=== PATIENT | male | born 1995 | race Caucasian/White ===

== ENCOUNTER 2020-09-11 11:13 | Outpatient (REF) | payer OTHER, SELFPAY ==
[2020-09-12 07:41] LABS: Syphilis Screen Nonreactive (Nonreactive)
[2020-09-12 09:19] LABS: HIV AB/AG Nonreactive (Nonreactive); HIV Num 1 0.15 S/CO (0.00-0.99)
[2020-09-12 14:17] LABS: C. trachomatis RNA TMA NOT DETECTED (NOT DETECTED); N. gonorrhoeae RNA TMA NOT DETECTED (NOT DETECTED)
[2020-09-12 18:12] LABS: Herpes Simplex Type 1 IgG <0.90 index; Herpes Simplex Type 2 IgG <0.90 index
== END 2020-09-11 11:14 | disposition home or self-care (01) ==
LOC: HO.HMGCLDS 11:13
PROVIDERS: PCP Nurse Practitioner Family; Visit Provider Nurse Practitioner Family
DX: Z11.3 Encounter for screening for infections with a predominantly sexual mode of transmission (principal); Z11.4 Encounter for screening for human immunodeficiency virus [HIV]
CPT/HCPCS: 86695; 86696; 86780; 87389; 87491; 87591

== ENCOUNTER 2020-11-13 11:26 | Outpatient (REF) | payer OTHER, SELFPAY ==
[2020-11-13 14:44] LABS: Alanine Aminotransferase 11 U/L (0-40); Albumin Level 4.6 g/dL (3.5-5.0); Alkaline Phosphatase 57 U/L (39-117); Anion Gap 12 (12-20); Aspartate Amino Transferase 19 U/L (5-37); Bilirubin Total 0.5 mg/dL (0.0-1.0); Blood Urea Nitrogen 13 mg/dL (9-16); Carbon Dioxide 27 mmol/L (22-29); Chloride 104 mmol/L (96-108); Cholesterol 179 mg/dL; Estimated Glomerular Filt Rate > 60; Glucose Fasting 92 mg/dL (60-99); HDL Cholesterol 33 mg/dL; LDL Cholesterol Calculated 139 mg/dl; Potassium 4.2 mmol/L (3.3-5.1); Sodium 139 mmol/L (135-145); Total Protein 8.3 g/dL (6.5-8.0); Triglycerides 36 mg/dL
[2020-11-13 15:03] LABS: TSH reflex Free T4 0.82 uIU/mL (0.32-4.0)
== END 2020-11-13 11:27 | disposition home or self-care (01) ==
LOC: HO.HMGCLDS 11:26
PROVIDERS: PCP Nurse Practitioner Family; Visit Provider Nurse Practitioner Family
DX: Z00.00 Encounter for general adult medical examination without abnormal findings (principal)
CPT/HCPCS: 36415; 80053; 80061; 84443

== ENCOUNTER 2021-01-23 13:56 | Outpatient (REF) | payer OTHER, SELFPAY ==
[2021-01-23 17:26] LABS: Syphilis Screen Nonreactive (Nonreactive)
[2021-01-24 04:43] LABS: HBc Num1 0.13 S/CO (0.00-0.79); HBsAGNum1 0.22 S/CO (0.00-0.99); Hepatitis B Core Antibody Nonreactive (Nonreactive); Hepatitis B Surface Antigen Negative (Negative); ~Hepatitis B Surface Antibody NONREACTIVE (Nonreactive)
[2021-01-24 04:46] LABS: HIV AB/AG Nonreactive (Nonreactive); HIV Num 1 0.05 S/CO (0.00-0.99); ~HepC Num1 0.13 S/CO (0.00-0.79); ~Hepatitis C Antibody Nonreactive (Nonreactive)
[2021-01-24 05:31] LABS: Herpes Simplex Type 1 IgG 1.07 index; Herpes Simplex Type 2 IgG <0.90 index
[2021-01-24 10:13] LABS: CT PCR NOT DETECTED (Not Detect.); NG PCR NOT DETECTED (Not Detect.)
[2021-01-25 04:26] LABS: Hepatitis A Antibody IgM 0.15 Index (0-0.79); ~Hepatitis A Antibody IgM Nonreactive (Nonreactive)
== END 2021-01-23 13:57 | disposition home or self-care (01) ==
LOC: HO.HMGCLDS 13:56
PROVIDERS: PCP Nurse Practitioner Family; Visit Provider Nurse Practitioner Family
DX: Z11.3 Encounter for screening for infections with a predominantly sexual mode of transmission (principal); Z11.8 Encounter for screening for other infectious and parasitic diseases; Z11.59 Encounter for screening for other viral diseases; Z11.4 Encounter for screening for human immunodeficiency virus [HIV]
CPT/HCPCS: 86695; 86696; 86704; 86706; 86709; 86780; 86803; 87340; 87389; 87491; 87591

== ENCOUNTER 2022-11-17 11:07 | Outpatient (REF) | payer OTHER, SELFPAY ==
[2022-11-17 14:10] LABS: Appearance Urine Cloudy; Color Urine Yellow; Glucose Urine UA Negative (Negative); Leukocyte Esterase Urine Negative (Negative); Nitrite Urine Negative (Negative); PH 6.5 (5.0-9.0); Specific Gravity - Urine 1.025 (1.005-1.025); Urine Blood Negative (Negative); Urine Ketones Trace mg/dL (Negative); Urine Protein Negative (Neg-Trace)
[2022-11-17 14:18] LABS: MANUAL DIFF FLAG NO
[2022-11-17 14:23] LABS: Basophils Percent Auto 0.8 % (0-2); Eosinophils Absolute Auto 0.2 X10*3/uL (0.0-0.4); Eosinophils Percent Auto 5.6 % (0-4); Hematocrit 46.2 % (42.0-52.0); Hemoglobin 15.9 g/dl (14.0-18.0); Lymphocytes Absolute Auto 1.8 X10*3/uL (1.2-4.9); Lymphocytes Percent Auto 44.6 % (20-40); Mean Corpuscular HGB Conc 34.4 g/dl (31.0-36.0); Mean Corpuscular Volume 87.2 fL (80.0-98.0); Mean Platelet Volume 10.1 fL (9.4-12.4); Monocytes Absolute Auto 0.4 X10*3/uL (0.1-1.2); Monocytes Percent Auto 9.9 % (2-11); Neutrophils Absolute Auto 1.5 x10*3/uL (2.0-8.3); Neutrophils Percent Auto 39.1 % (45-73); Platelet Count 163 X10*3/uL (160-400); Red Cell Distribution Width 11.9 % (11.0-16.0); White Blood Count 3.9 X10*3/uL (4.8-10.8)
[2022-11-17 14:56] LABS: Alanine Aminotransferase 10 U/L (0-40); Albumin Level 4.4 g/dL (3.5-5.0); Alkaline Phosphatase 62 U/L (39-117); Anion Gap 11 (12-20); Aspartate Amino Transferase 14 U/L (5-37); Bilirubin Total 0.4 mg/dL (0.0-1.0); Blood Urea Nitrogen 14 mg/dL (9-16); Calcium 9.2 mg/dL (8.4-10.2); Carbon Dioxide 25 mmol/L (22-29); Chloride 108 mmol/L (96-108); Cholesterol 180 mg/dL; Estimated Glomerular Filt Rate > 60; Glucose Fasting 99 mg/dL (60-99); HDL Cholesterol 34 mg/dL; LDL Cholesterol Calculated 137 mg/dl; Potassium 4.2 mmol/L (3.3-5.1); Sodium 140 mmol/L (135-145); TSH reflex Free T4 0.47 uIU/mL (0.32-4.0); Total Protein 8.1 g/dL (6.5-8.0); Triglycerides 46 mg/dL
[2022-11-17 15:25] LABS: Syphilis Screen Nonreactive (Nonreactive)
[2022-11-17 15:40] LABS: CT PCR NOT DETECTED (Not Detect.); NG PCR NOT DETECTED (Not Detect.)
[2022-11-18 11:18] LABS: Herpes Simplex Type 1 IgG <0.90 index; Herpes Simplex Type 2 IgG <0.90 index
[2022-11-18 14:12] LABS: HIV AB/AG Nonreactive (Nonreactive); HIV Num 1 0.09 S/CO (0.00-0.99)
== END 2022-11-17 11:08 | disposition home or self-care (01) ==
LOC: HO.HMGCLDS 11:07
PROVIDERS: PCP Nurse Practitioner Family; Visit Provider Nurse Practitioner Family
DX: Z00.00 Encounter for general adult medical examination without abnormal findings (principal); Z20.2 Contact with and (suspected) exposure to infections with a predominantly sexual mode of transmission
CPT/HCPCS: 0353U; 80053; 80061; 81003; 84443; 85025; 86695; 86696; 86780; 87389

== ENCOUNTER 2023-02-26 09:27 | Outpatient (REF) | payer OTHER, SELFPAY ==
[2023-02-26 15:37] LABS: CT PCR NOT DETECTED (Not Detect.); NG PCR NOT DETECTED (Not Detect.)
== END 2023-02-26 09:28 | disposition home or self-care (01) ==
LOC: HO.LAB 09:27
PROVIDERS: Visit Provider Physician Assistant
DX: Z20.2 Contact with and (suspected) exposure to infections with a predominantly sexual mode of transmission (principal)
CPT/HCPCS: 0353U

== ENCOUNTER 2023-08-22 11:46 | Outpatient (AMB) | payer OTHER, SELFPAY ==
[2023-08-22 13:14] VITALS: BP 110/70; PULSE 86; TEMP 36.2; O2SAT 94; BMI 23.5
--- NOTE | 2023-08-22 13:14 | MHC.OFFWIV ---
Intake Vital Signs 08/22/23 13:14 Height 6 ft 1 in Weight 178 lb BMI 23.5 BP 110/70 Blood Pressure Location Lt brachial Position Sitting Pulse 86 Pulse Source Pulse Oximeter Temp 97.1 F Temp Source Oral Pulse Oximetry (%) 94 Oxygen Delivery Method Room Air Intake Visit Reasons: EP, sinus congestion, fatigue (masked) Intake Note: Pt is here today c/o sinus congestion, coughing and fatigue x2wks Patient Tobacco Use Status: Never used Tobacco Allergies amoxicillin [Augmentin] Adverse Reaction (Unknown, Verified 08/22/23 13:20) vomiting clavulanic acid [Augmentin] Adverse Reaction (Unknown, Verified 08/22/23 13:20) vomiting Do you need a note to return to daycare/school/sports/work: No HPI EP, sinus congestion, fatigue (masked) HPI Details Patient is a 28 year old asthmatic male who comes the walk-in clinic complaining of 2 weeks of increased cough, nasal congestion, lightheadedness and increased use of his albuterol for asthma. He states that he thought he was improving until he he started to develop fever 2 days ago. This resolved today, but he is still having it the reactive cough. He denies nausea vomiting or diarrhea, weakness, myalgias or malaise, dizziness or headache, shortness of breath or chest pain, sore throat, ear pain, or other significant associated symptoms. [facility] Medical History ADHD Family History Father HTN (hypertension) Mother High cholesterol Sister IBS (irritable bowel syndrome) Social History Housing: Condominium Alcohol intake: never Patient Tobacco Use Status: Never used Tobacco e-Cigarette/Vaping Use: Never Used Second Hand Smoke Exposure: No service: No Current occupational status: employed Current occupation: [employer] Current occupational exposures/hazards: No Cognitive needs: No Hearing needs: No Vision needs: No Review of Systems Const All systems reviewed & are unremarkable except as noted in HPI and below Physical Exam Vital Signs: Last Vital Signs Temp 97.1 F 08/22/23 13:14 Pulse 86 08/22/23 13:14 BP 110/70 08/22/23 13:14 Pulse Ox 94 08/22/23 13:14 Oxygen Delivery Method Room Air 08/22/23 13:14 BMI result Body Mass Index 23.5 Const General: cooperative, healthy appearing, comfortable, no acute distress, alert, awake, Physically active and well groomed; No anxious, diaphoretic, intoxicated appearing, poor hygiene or tired appearing Nutritional Appearance: average body habitus Orientation/consciousness: oriented to person Limitations: no limitations HEENT Head: Yes normal to inspection, Yes normocephalic and Yes atraumatic Ears: hearing grossly normal bilaterally, external ears normal, TM's normal bilaterally and EAC's normal General nose exam: Normal external nose present, Normal nares present, Normal nasal mucous membranes and turbinates present, Normal septum present, No nasal discharge present and Abnormal mucous membranes and turbinates present Face and sinus: Yes normal facial exam, Yes sinuses nontender and Yes face symmetric Mouth: Normal oral and palatal mucosa present, lip normal and tongue normal Throat: Yes uvula midline, No peritonsillar mass, Yes postnasal drainage, No uvular edema and No cobblestoning Eyes General: appearance normal, both eyes and all related structures Neck Neck: Yes normal visual inspection, Yes trachea midline, Yes supple and No anterior neck swelling Chest Chest palpation & inspection: normal palpation of entire chest wall Resp Effort & Inspection: normal respiratory effort, able to speak in complete sentences, no audible wheezes, no cough, no grunting, not labored, no nasal flaring, no retractions and symmetric chest movement Auscultation: clear to auscultation bilaterally, no crackles, no rales, no rhonchi, no wheezes, lung sounds not diminished and No rub present Cardio Palpation: normal PMI Rate: regular rate Rhythm: regular rhythm Heart sounds: S1 normal heart sound present and S2 normal heart sound present Skin Other: Good color, warm and dry Neuro General: oriented to person Psych Appearance: grossly normal Mental Status: mental status grossly normal Speech and movement: Normal speech and movement present Affect: normal affect Attitude: cooperative Thought process: Normal thought process present Insight: Good insight present (Psych) Judgement: Good judgement present (Psych) Assessment & Plan Assessment & Plan (1) Upper respiratory infection: Code(s): J06.9 - Acute upper respiratory infection, unspecified Qualifiers: URI type: unspecified viral URI Qualified Code(s): J06.9 - Acute upper respiratory infection, unspecified Plan Patient is a 28-year-old male with upper respiratory infection that is aggravating his asthma, however he is not wheezing today and has no shortness of breath. He has developed a mildly reactive cough, that he has been using his albuterol to treat than usual. His vitals are stable, and is appropriate for outpatient treatment. I refilled his albuterol today, and I wrote him for course of prednisone as well as azithromycin antibiotics in the setting of his asthma. Likely this is an underlying viral infection, however his 2 weeks in and so he respiratory panel not done today. He knows to follow up if symptoms persist or worsen or go to the emergency department with worrisome symptoms. Medications: New prednisone then take 2 and half tabs daily for 3 days, then take 2 tabs daily for 3 days, then take 1 and half tabs daily for 3 days, and then take 1 tab daily for 3 days 60 mg (3 x 20 mg) PO DAILY 30 tabs 0RF 3 days azithromycin take 500 mg today (day 1), then 250 mg for 4 days (days 2-5) PO 6 tabs 0RF Refilled albuterol sulfate 90 mcg/actuation (ProAir HFA) 1 inh inhalation QID PRN 8.5 grams 0RF shortness of breath or wheezing Coding Level of Care Code Est Pt Level 4 (27805) Diagnoses Viral upper respiratory tract infection J06.9 URI type: unspecified viral URI
== END 2023-08-22 14:01 | disposition home or self-care (01) ==
PROVIDERS: PCP Nurse Practitioner Family; Visit Provider Physician Assistant Medical
DX: J06.9 Acute upper respiratory infection, unspecified (principal)
CPT/HCPCS: 99051; 99214

== ENCOUNTER 2024-03-28 15:33 | Outpatient (AMB) | payer OTHER, SELFPAY ==
[2024-03-28 15:36] VITALS: BP 122/84; PULSE 57; O2SAT 97; BMI 23.9
--- NOTE | 2024-03-28 15:36 | A.OFFPC_ITS ---
Vital Signs 03/28/24 15:36 Height 6 ft 1 in Weight 181 lb 6 oz BMI 23.9 BP 122/84 Blood Pressure Location Lt brachial Position Sitting Pulse 57 Pulse Source Pulse Oximeter Pulse Oximetry (%) 97 Oxygen Delivery Method Room Air Intake Visit Reasons: Followup asthma Intake Note: Pt is here today for a follow up on asthma Allergies amoxicillin [Augmentin] Adverse Reaction (Unknown, Verified 03/28/24 15:36) vomiting clavulanic acid [Augmentin] Adverse Reaction (Unknown, Verified 03/28/24 15:36) vomiting Tobacco use date assessed: 03/28/24 Dental Screening Dental Screen Date: 03/28/24 Did you have a dental visit in the last 12 months?: Yes Did you have a dental problem in the last 6 months where you did not have access to dental care?: No Was dental information given to patient?: Patient has dentist HPI Followup asthma HPI Details Pt has a hx of asthma. He is using his albuterol inhaler approximately twice a week (works around mostly plants). Discussed adding a medication such as singulair or maintenance inhaler. Pt would like to wait on this and do his own research. He will let me know via portal whether or not he would like to start a med. Denies chest pain, shortness of breath, and dizziness. [facility] Medical History ADHD Family History Father HTN (hypertension) Mother High cholesterol Sister IBS (irritable bowel syndrome) Social History Housing: Condominium Alcohol intake: never Patient Tobacco Use Status: Current someday Tobacco user e-Cigarette/Vaping Use: Never Used Second Hand Smoke Exposure: No service: No Current occupational status: employed Current occupation: [employer] Current occupational exposures/hazards: No Cognitive needs: No Hearing needs: No Vision needs: No Questionnaire PHQ-9 Over the last 2 weeks, how often have you been bothered by any of the following problems? 1. Little interest or pleasure in doing things: not at all 2. Feeling down, depressed, or hopeless: not at all 3. Trouble falling or staying asleep, or sleeping too much: not at all 4. Feeling tired or having little energy: not at all 5. Poor appetite or overeating: not at all 6. Feeling bad about yourself - or that you are a failure or have let yourself or your family down: not at all 7. Trouble concentrating on things, such as reading the newspaper or watching television: not at all 8. Moving or speaking so slowly that other people could have noticed. Or the opposite - being so fidgety or restless that you have been moving around a lot more than usual: not at all 9. Thoughts that you would be better off or of hurting yourself in some way: not at all Total score: 0 Depression Screening Interpretation: Negative Depression Screening Done: Yes 69712 - PHQ-9 Billing: Yes Source: Developed by Drs. Akira Teague, Karen Silvestre, Jim Chen and colleagues, with an educational lisa from [employer]. Thrive Questionnaire Date Thrive assessed: 03/28/24 I am a: Patient What is your living situation today?: I have a steady place to live Within the past 12 months, did the food you bought not last and you didn't have the money to get more?: Never true Within the past 12 months, did you worry whether your food would run out before you got money to buy more?: Never true Do you have trouble paying for medicines?: No Do you have trouble getting transportation to medical appointments?: No Do you have trouble paying your heating and electricity bill?: No Do you have trouble taking care of your child, family member or friend?: No Do you have trouble with day-to-day activities such as bathing, preparing meals, shopping, managing finances, etc.?: No Are you currently unemployed and looking for a job?: No Are you interested in more education?: No Please select the resources that you would like help with: None Currently or been in a relationship where the following occur: No concerns reported THRIVE Score: 0 AUDIT C Alcohol Use Questionnaire (AUDIT-C) 1. How often do you have a drink containing alcohol?: Monthly or less 2. How many drinks containing alcohol do you have on a typical day when you are drinking?: 1 or 2 3. How often do you have six or more drinks on one occasion?: Never Total Score: 1 Score Reviewed/Action Taken: Yes KAYLA-7 AMB Questionnaire KAYLA-7 Date KAYLA - 7 assessed: 03/28/24 Feeling nervous, anxious, or on edge: 0 = Not at all Not being able to stop or control worryin = Not at all Worrying too much about different things: 0 = Not at all Trouble relaxin = Not at all Being so restless that it is hard to sit still: 0 = Not at all Becoming easily annoyed or irritable: 0 = Not at all Feeling afraid as if something awful might happen: 0 = Not at all Total KAYLA-7 score (0-4 normal; 5-9 mild; 10-14 moderate; 15-21 severe): 0 Source: Developed by Drs. Akira Teague, Karen Silvestre, Jim Chen and colleagues, with an educational lisa from [employer]. KAYLA-7 Assessment Billing KAYLA-7 Assessment Tool: KAYLA-7 Assessment 44573 Review of Systems Const Reports as per HPI Physical exam (Primary Care) Vital Signs: Last Vital Signs Pulse 57 03/28/24 15:36 BP 122/84 03/28/24 15:36 Pulse Ox 97 03/28/24 15:36 Oxygen Delivery Method Room Air 03/28/24 15:36 BMI result Body Mass Index 23.9 Tobacco/Smoking Status: Tobacco use Status Tobacco use date assessed 03/28/24 03/28/24 15:40 Patient Tobacco Use Status Current someday Tobacco 03/28/24 15:43 e-Cigarette/Vaping Use Never Used 03/28/24 15:37 PHQ-9: PHQ-9 Score PHQ-9: Total score 0 03/28/24 15:59 Depression Screening Interpretation: Negative Thrive Assessment: Date of Thrive Assessment Date Thrive assessed 03/28/24 03/28/24 15:40 Currently or been in a relationship where the following occur: No concerns reported Const General: cooperative Orientation/consciousness: patient oriented x3 Resp Other: lungs fairly clear Effort & Inspection: normal respiratory effort Cardio Rate: regular rate Rhythm: regular rhythm Heart sounds: S1 normal heart sound present and S2 normal heart sound present Neuro General: patient oriented x3 Psych Appearance: grossly normal Mental Status: mental status grossly normal Speech and movement: Normal speech and movement present Affect: normal affect Attitude: cooperative Thought process: Normal thought process present Thought content: Normal thought content present Insight: Good insight present (Psych) Judgement: Good judgement present (Psych) Assessment and Plan Assessment & Plan (1) Asthma: Code(s): J45.909 - Unspecified asthma, uncomplicated Plan: Labs ordered, pt would like to wait on any new meds Plan The patient agreed to the use of a medical transcription editor for this encounter. Scribed for YAKOV Mcghee-MARCELLUS by Jennifer Marcelino medical transcription editor, on 03/28/2024 at 15:55 EST. Orders: Orders TSH reflex Free T4 Today J45.909 - Unspecified asthma, uncomplicated UA CC w/rflx Micro + Cult Today J45.909 - Unspecified asthma, uncomplicated Immunoglobulin E Today J45.909 - Unspecified asthma, uncomplicated Complete Blood Count Auto Diff Today J45.909 - Unspecified asthma, uncomplicated Comprehensive Minerva. Panel Fast Today J45.909 - Unspecified asthma, uncomplicated Lipid Panel Today J45.909 - Unspecified asthma, uncomplicated Resp Allergy Profile Region I Today J45.909 - Unspecified asthma, uncomplicated Coding Level of Care Code Est Pt Level 3 (09993) Diagnoses Asthma J45.909 Additional Codes KAYLA-7 Assessment Billing - KAYLA-7 Assessment Tool: KAYLA-7 Assessment [id number] ([id number])
== END 2024-03-28 17:23 | disposition home or self-care (01) ==
PROVIDERS: PCP Nurse Practitioner Family; Visit Provider Nurse Practitioner Family
DX: J45.909 Unspecified asthma, uncomplicated (principal)
CPT/HCPCS: 99213

== ENCOUNTER 2024-08-08 12:38 | Outpatient (REF) | payer OTHER, SELFPAY ==
[2024-08-08 17:04] LABS: Influenza A PCR NEGATIVE (Negative); Influenza B PCR NEGATIVE (Negative); Resp Syncy Virus RNA Qual PCR NEGATIVE (Negative); SARS COV2 PCR INHOUSE NEGATIVE (Negative)
== END 2024-08-08 12:39 | disposition home or self-care (01) ==
LOC: HO.LNP 12:38
PROVIDERS: PCP Nurse Practitioner Family; Visit Provider Registered Nurse
DX: J06.9 Acute upper respiratory infection, unspecified (principal)
CPT/HCPCS: 0241U

== ENCOUNTER 2024-08-08 12:38 | Outpatient (AMB) | payer OTHER, SELFPAY ==
--- NOTE | 2024-08-08 14:01 | AM.OFFWIN_ITS ---
Intake Vital Signs 08/08/24 14:03 Height 6 ft 1 in Weight 178 lb 6 oz BMI 23.5 BP 142/88 H Blood Pressure Location Lt brachial Position Sitting Pulse 111 H Pulse Source Pulse Oximeter Temp 97.8 F Temp Source Temporal Artery Scan Pulse Oximetry (%) 97 Oxygen Delivery Method Room Air Intake Visit Reasons: EP-fever, nose & chest congestion, sob [phone] Intake Note: Pt presents to the office today for c/o fever x2 days and cough, nose and chest congestion x3 days. Patient Tobacco Use Status: Never used Tobacco Allergies amoxicillin [Augmentin] Adverse Reaction (Unknown, Verified 08/08/24 14:01) vomiting clavulanic acid [Augmentin] Adverse Reaction (Unknown, Verified 08/08/24 14:01) vomiting HPI EP-fever, nose & chest congestion, sob [phone] HPI Details This note is constructed using voice recognition software. While every effort has been made to ensure accuracy, caustic mixer errors may have been included. The patient is a 29 year old male who presents to the clinic today with cough, nasal congestion, low-grade fever since Thursday. He had sick exposure through his partner who had recently been treated for pneumonia. He denies dyspnea at rest, but does have some shortness of breath when he is coughing. He has a history of asthma and has been using his albuterol inhaler slightly more than normal. [facility] Medical History ADHD Family History Father HTN (hypertension) Mother High cholesterol Sister IBS (irritable bowel syndrome) Social History Housing: Condominium Alcohol intake: never Patient Tobacco Use Status: Never used Tobacco e-Cigarette/Vaping Use: Never Used Second Hand Smoke Exposure: No service: No Current occupational status: employed Current occupation: [employer] Current occupational exposures/hazards: No Cognitive needs: No Hearing needs: No Vision needs: No Review of Systems Const All systems reviewed & are unremarkable except as noted in HPI and below Physical Exam Vital Signs: Last Vital Signs Temp 97.8 F 08/08/24 14:03 Pulse 111 H 08/08/24 14:03 BP 142/88 H 08/08/24 14:03 Pulse Ox 97 11/18/24 14:03 Oxygen Delivery Method Room Air 08/08/24 14:03 BMI result Body Mass Index 23.5 Const General: cooperative, healthy appearing, comfortable and no acute distress Orientation/consciousness: patient oriented x3 Limitations: no limitations HEENT Head: Yes normal to inspection Ears: hearing grossly normal bilaterally, external ears normal and TM's normal bilaterally General nose exam: Normal external nose present, Normal nares present and No nasal discharge present Face and sinus: Yes normal facial exam and Yes sinuses nontender Mouth: Normal oral and palatal mucosa present and moist mucous membranes Throat: Yes tonsils normal, Yes uvula midline and Yes posterior oropharynx a bnormal (Erythema) Eyes General: appearance normal, both eyes and all related structures Neck Neck: Yes normal visual inspection Resp Effort & Inspection: normal respiratory effort, able to speak in complete sentences, Actively coughing, no respiratory distress, not tachypneic, no tripod positioning and no use of accessory muscles Auscultation: clear to auscultation bilaterally (Wheeze that clears with cough) Cardio Jugular venous distension: no JVD Rate: regular rate Rhythm: regular rhythm Heart sounds: S1 normal heart sound present, S2 normal heart sound present, no click, no gallops, no murmurs and no rubs Skin General skin exam: no rashes or lesions noted, elasticity normal and turgor normal Neuro General: patient oriented x3 Extrem General: Yes normal to inspection and Yes no clubbing, cyanosis or edema Assessment & Plan Assessment & Plan (1) Upper respiratory infection: Code(s): J06.9 - Acute upper respiratory infection, unspecified Qualifiers: URI type: unspecified URI Qualified Code(s): J06.9 - Acute upper respiratory infection, unspecified Plan: Viral swab obtained to rule out Covid based on symptoms. Advised mask wearing while symptomatic and quarantine per current CDC guidelines. Reviewed at home support methods including hydration, humidification, vix vapor rub, sinus rinse. Advised follow up with worsening symptoms such as dyspnea at rest, which would require emergent evaluation. (2) Asthma exacerbation: Code(s): J45.901 - Unspecified asthma with (acute) exacerbation Qualifiers: Asthma severity: moderate Asthma persistence: persistent Qualified Code(s): J45.41 - Moderate persistent asthma with (acute) exacerbation Plan: Advised ongoing use of albuterol inhaler. Prescription provided for prednisone burst for symptomatic management. Advised follow up with worsening or failure to resolve, particularly should he develop any dyspnea at rest. Plan See above for full details and plan. Orders: Orders SARS-CoV2/FLU/RSV Today J06.9 - Acute upper respiratory infection, unspecified Medications: New prednisone 40 mg (2 x 20 mg) PO DAILY 5 days 10 tabs 0RF Coding Level of Care Code Est Pt Level 3 (81191) Diagnoses Upper respiratory tract infection, unspecified type J06.9 URI type: unspecified URI Moderate persistent asthma with exacerbation J45.41 Asthma severity: moderate Asthma persistence: persistent
[2024-08-08 14:03] VITALS: BP 142/88; PULSE 111; TEMP 36.6; O2SAT 97; BMI 23.5
== END 2024-08-08 14:46 | disposition home or self-care (01) ==
PROVIDERS: PCP Nurse Practitioner Family; Visit Provider Registered Nurse
DX: J06.9 Acute upper respiratory infection, unspecified (principal); J45.41 Moderate persistent asthma with (acute) exacerbation

== ENCOUNTER 2024-10-12 14:19 | Outpatient (REF) | payer OTHER, SELFPAY ==
[2024-10-12 16:10] LABS: Appearance Urine Clear; Color Urine Yellow; Glucose Urine UA Negative (Negative); Leukocyte Esterase Urine Negative (Negative); Nitrite Urine Negative (Negative); Urine Blood Negative (Negative); Urine Ketones Negative (Negative); Urine Protein Negative (Neg-Trace)
[2024-10-12 16:18] LABS: MANUAL DIFF FLAG NO
[2024-10-12 16:34] LABS: Hematocrit 45.7 % (42.0-52.0); Hemoglobin 15.7 g/dl (14.0-18.0); Mean Corpuscular HGB Conc 34.4 g/dl (31.0-36.0); Mean Corpuscular Hemoglobin 30.7 pg (27.0-33.0); Mean Corpuscular Volume 89.4 fL (80.0-98.0); Mean Platelet Volume 9.9 fL (9.4-12.4); Neutrophils Percent Auto 37.6 % (45-73); Platelet Count 192 X10*3/uL (160-400); Red Blood Count 5.11 X10*6/uL (4.60-5.80); Red Cell Distribution Width 12.1 % (11.0-16.0); White Blood Count 3.4 X10*3/uL (4.8-10.8)
[2024-10-12 16:35] LABS: Basophils Percent Auto 0.3 % (0-2); Eosinophils Absolute Auto 0.1 X10*3/uL (0.0-0.4); Eosinophils Percent Auto 3.9 % (0-4); Lymphocytes Absolute Auto 1.6 X10*3/uL (1.2-4.9); Lymphocytes Percent Auto 48.1 % (20-40); Monocytes Absolute Auto 0.3 X10*3/uL (0.1-1.2); Monocytes Percent Auto 10.1 % (2-11); Neutrophils Absolute Auto 1.3 x10*3/uL (2.0-8.3)
[2024-10-12 17:04] LABS: Alanine Aminotransferase 40 U/L (0-40); Albumin Level 4.6 g/dL (3.5-5.0); Alkaline Phosphatase 62 U/L (39-117); Anion Gap 7 (12-20); Aspartate Amino Transferase 38 U/L (5-37); Bilirubin Total 0.4 mg/dL (0.0-1.0); Blood Urea Nitrogen 10 mg/dL (9-16); Calcium 9.9 mg/dL (8.4-10.2); Carbon Dioxide 27 mmol/L (22-29); Chloride 107 mmol/L (96-108); Cholesterol 216 mg/dL (<200); Estimated Glomerular Filt Rate > 60; Glucose Fasting 86 mg/dL (60-99); HDL Cholesterol 40 mg/dL (>40); LDL Cholesterol Calculated 162 mg/dL (<100); Potassium 4.2 mmol/L (3.3-5.1); Sodium 137 mmol/L (135-145); Total Protein 8.6 g/dL (6.5-8.0); Triglycerides 74 mg/dL (<150)
[2024-10-12 17:19] LABS: TSH reflex Free T4 1.87 uIU/mL (0.32-4.0)
[2024-10-24 13:09] LABS: Immunoglobulin A 281
[2024-10-24 13:10] LABS: Transglutaminase IgA <1.0
== END 2024-10-12 14:20 | disposition home or self-care (01) ==
LOC: HO.HMGCLDS 14:19
PROVIDERS: PCP Nurse Practitioner Family; Visit Provider Nurse Practitioner Family
DX: J45.909 Unspecified asthma, uncomplicated (principal); D72.819 Decreased white blood cell count, unspecified; E78.5 Hyperlipidemia, unspecified
CPT/HCPCS: 36415; 80053; 80061; 81003; 82784; 82785; 84443; 85025; 86003; 86258; 86364

== ENCOUNTER 2024-10-17 13:01 | Outpatient (AMB) | payer OTHER, SELFPAY ==
[2024-10-17 13:02] VITALS: BP 130/82; PULSE 75; TEMP 36.7; O2SAT 98; BMI 23.8
--- NOTE | 2024-10-17 13:02 | A.OFFPC_ITS ---
Vital Signs 10/17/24 13:02 Height 6 ft 1 in Weight 180 lb 8 oz BMI 23.8 BP 130/82 Blood Pressure Location Lt brachial Position Sitting Pulse 75 Pulse Source Pulse Oximeter Temp 98.1 F Temp Source Oral Pulse Oximetry (%) 98 Oxygen Delivery Method Room Air Intake Visit Reasons: PE Intake Note: Pt is here today for his annual physical. Allergies amoxicillin [Augmentin] Adverse Reaction (Unknown, Verified 10/17/24 13:31) vomiting clavulanic acid [Augmentin] Adverse Reaction (Unknown, Verified 10/17/24 13:31) vomiting Medication List - Last Reconciled 10/17/24 by Evangelist Loja, [employer]- albuterol sulfate 90 mcg/actuation 1 inh inhalation QID PRN Tobacco use date assessed: 10/17/24 Dental Screening Dental Screen Date: 10/17/24 Did you have a dental visit in the last 12 months?: Yes Did you have a dental problem in the last 6 months where you did not have access to dental care?: No Was dental information given to patient?: Patient has dentist HPI PE HPI Details History of Present Illness Here for a PE. The patient is a 29-year-old male also presenting with hyperlipidemia. Recent laboratory evaluations indicated elevated cholesterol levels and increased low-density lipoprotein (LDL). He does not report any symptoms associated with hyperlipidemia, such as chest pain or shortness of breath. There were no lifestyle or dietary changes noted in the conversation that may have contributed to this finding. 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 There is no mention of associated symptoms related to leukopenia from the conversation. Health Maintenance - Addressing hyperlipidemia with dietary management and follow-up laboratory testing - Referral to hematology for further patricia luation of leukopenia Social History Review of Systems - Cardiovascular: Denies chest pain, candice rtness of breath. - General: Denies fevers, chills. - Gastrointestinal: Denies constipation, diarrhea. - Genitourinary: Denies urinary issues. - Psychiatric: Denies suicidal ideation, homicidal ideation. Physical Exam General: Cooperative, healthy appearing, comfortable, no acute distress and well developed Orientation: Patient oriented x3 Limitations: No limitations Head: Normal to inspection Ears: Hearing grossly normal bilaterally Nose: Normal external nose present Face and sinus: Normal facial exam Eyes: Appearance normal, both eyes and all related structures Neck: Normal visual inspection and Yes full ROM Respiratory: Normal respiratory effort and able to speak in complete sentences. Clear to auscultation bilaterally Cardiovascular: Regular rate and rhythm. Normal S1 and S2 GI: Normal to inspection. Soft to palpation and nontender Skin: No rashes or lesions noted Neuro: Patient oriented x3 Extremities: Normal to inspection Results - Labs: Elevated cholesterol levels, inc reased LDL, leukopenia noted on laboratory results. Plan - Monitor hyperlipidemia through dietary modifications and repeat laboratory testing for lipid profile. - Referral to hematology for further patricia luation of leukopenia due to its rec urrence. Patient was informed and verbally consented to the use of an ambient scribe for clinic note documentation during this visit. Discussion Notes During the visit, I discussed the implications of the laboratory findings with the patient. We reviewed the elevated cholesterol levels and the increase in LDL, emphasizing the importance of dietary changes to manage these levels. I advised a follow-up lipid profile and highlighted the need for ongoing surveillance. Regarding the leukopenia, due to its persistence, I recommended a referral to hematology for additional evaluation to determine underlying causes and appropriate management strategies. The patient understood and agreed with the plan of care. Patient Instructions - Follow a heart-healthy diet to help re duce cholesterol levels. - Return for follow-up laboratory testin g as recommended. - Attend hematology referral appointment for further evaluation of low white blood cell count. [facility] Medical History ADHD Family History Father HTN (hypertension) Mother High cholesterol Sister IBS (irritable bowel syndrome) Social History Housing: Condominium Alcohol intake: never Patient Tobacco Use Status: Never used Tobacco e-Cigarette/Vaping Use: Never Used Second Hand Smoke Exposure: No service: No Current occupational status: employed Current occupation: [employer] Current occupational exposures/hazards: No Cognitive needs: No Hearing needs: No Vision needs: No Questionnaire PHQ-9 Over the last 2 weeks, how often have you been bothered by any of the following problems? 1. Little interest or pleasure in doing things: not at all 2. Feeling down, depressed, or hopeless: not at all 3. Trouble falling or staying asleep, or sleeping too much: not at all 4. Feeling tired or having little energy: not at all 5. Poor appetite or overeating: not at all 6. Feeling bad about yourself - or that you are a failure or have let yourself or your family down: not at all 7. Trouble concentrating on things, such as reading the newspaper or watching television: not at all 8. Moving or speaking so slowly that other people could have noticed. Or the opposite - being so fidgety or restless that you have been moving around a lot more than usual: not at all 9. Thoughts that you would be better off or of hurting yourself in some way: not at all Total score: 0 Depression Screening Interpretation: Negative Depression Screening Done: Yes 21004 - PHQ-9 Billing: Yes Source: Developed by Drs. Akira Teague, Karen Silvestre, Jim Chen and colleagues, with an educational lisa from [employer]. Thrive Questionnaire Date Thrive assessed: 10/17/24 I am a: Patient What is your living situation today?: I have a steady place to live Within the past 12 months, did the food you bought not last and you didn't have the money to get more?: I choose not to answer this question Within the past 12 months, did you worry whether your food would run out before you got money to buy more?: I choose not to answer this question Do you have trouble paying for medicines?: I choose not to answer this question Do you have trouble getting transportation to medical appointments?: I choose n ot to answer this question Do you have trouble paying your heating and electricity bill?: I choose not to answer this question Do you have trouble taking care of your child, family member or friend?: I choose not to answer this question Do you have trouble with day-to-day activities such as bathing, preparing meals, shopping, managing finances, etc.?: I choose not to answer this question Are you currently unemployed and looking for a job?: I choose not to answer this question Are you interested in more education?: I choose not to answer this question Please select the resources that you would like help with: None Currently or been in a relationship where the following occur: I choose not to answer THRIVE Score: 0 AUDIT C Alcohol Use Questionnaire (AUDIT-C) 1. How often do you have a drink containing alcohol?: 2-4 times a month 2. How many drinks containing alcohol do you have on a typical day when you are drinking?: 1 or 2 3. How often do you have six or more drinks on one occasion?: Never Total Score: 2 Score Reviewed/Action Taken: Yes KAYLA-7 AMB Questionnaire KAYLA-7 Date KAYLA - 7 assessed: 10/17/24 Feeling nervous, anxious, or on edge: 0 = Not at all Not being able to stop or control worryin = Not at all Worrying too much about different things: 0 = Not at all Trouble relaxin = Not at all Being so restless that it is hard to sit still: 0 = Not at all Becoming easily annoyed or irritable: 0 = Not at all Feeling afraid as if something awful might happen: 0 = Not at all Total KAYLA-7 score (0-4 normal; 5-9 mild; 10-14 moderate; 15-21 severe): 0 Source: Developed by Drs. Akira Teague, Karen Silvestre, Jim Chen and colleagues, with an educational lisa from [employer]. KAYLA-7 Assessment Billing KAYLA-7 Assessment Tool: KAYLA-7 Assessment 32565 Physical exam (Primary Care) Vital Signs: Last Vital Signs Temp 98.1 F 10/17/24 13:02 Pulse 75 10/17/24 13:02 BP 130/82 10/17/24 13:02 Pulse Ox 98 10/17/24 13:02 Oxygen Delivery Method Room Air 10/17/24 13:02 BMI result Body Mass Index 23.8 Tobacco/Smoking Status: Tobacco use Status Tobacco use date assessed 10/17/24 10/17/24 13:05 Patient Tobacco Use Status Never used Tobacco 10/17/24 13:05 e-Cigarette/Vaping Use Never Used 10/17/24 13:05 Depression Screening Interpretation: Negative Thrive Assessment: Date of Thrive Assessment Date Thrive assessed 10/17/24 10/17/24 13:05 Currently or been in a relationship where the following occur: I choose not to answer Coding Level of Care Code Est Pt Prev Care 18-39y([id number]) Diagnoses Leukopenia D72.819 Dyslipidemia E78.5 Physical exam Z00.00 Additional Codes KAYLA-7 Assessment Billing - KAYLA-7 Assessment Tool: KAYLA-7 Assessment 03529 ([id number]) PHQ-9 - 98577 - PHQ-9 Billing: Yes ([id number]) Assessment & Plan Assessment & Plan (1) Leukopenia: Code(s): D72.819 - Decreased white blood cell count, unspecified Category: Medical (2) Dyslipidemia: Code(s): E78.5 - Hyperlipidemia, unspecified Category: Medical (3) Physical exam: Code(s): Z00.00 - Encounter for general adult medical examination without abnormal findings Category: Medical Plan . Orders: Orders Complete Blood Count Auto Diff Today E78.5 - Hyperlipidemia, unspecified Lipid Panel Today E78.5 - Hyperlipidemia, unspecified Comprehensive [place]. Panel Fast Today E78.5 - Hyperlipidemia, unspecified Referrals Hematology & Oncology Referral D72.819 - Decreased white blood cell count, unspecified
== END 2024-10-17 13:51 | disposition home or self-care (01) ==
PROVIDERS: PCP Nurse Practitioner Family; Visit Provider Nurse Practitioner Family
DX: D72.819 Decreased white blood cell count, unspecified (principal); E78.5 Hyperlipidemia, unspecified; Z00.00 Encounter for general adult medical examination without abnormal findings

== ENCOUNTER → 2024-10-17 13:01 | Outpatient (BNVA) | payer OTHER, SELFPAY | PROVIDERS: PCP Nurse Practitioner Family; Visit Provider Nurse Practitioner Family | DX: Z00.00 Encounter for general adult medical examination without abnormal findings (principal); D72.819 Decreased white blood cell count, unspecified; E78.5 Hyperlipidemia, unspecified | CPT/HCPCS: 96127 ==

== ENCOUNTER → 2024-10-20 13:57 | Outpatient (BNV) | payer OTHER, SELFPAY | PROVIDERS: PCP Nurse Practitioner Family; Referring Provider Nurse Practitioner Family; Visit Provider Nurse Practitioner Family | DX: D72.819 Decreased white blood cell count, unspecified (principal) | CPT/HCPCS: 99204 ==

== ENCOUNTER 2025-08-23 08:46 | Outpatient (REF) | payer OTHER, SELFPAY ==
[2025-08-23 11:38] LABS: HBS Num1 1.79 mIU/mL (0-7.99); HBc Num1 0.15 S/CO (0.00-0.79); HBsAGNum1 0.46 S/CO (0.00-0.99); HIV Num 1 0.05 S/CO (0.00-0.99); Hepatitis A Antibody IgM 0.23 Index (0-0.79); Hepatitis B Surface Antigen Negative (Negative); ~HepC Num1 0.14 S/CO (0.00-0.79); ~Hepatitis A Antibody IgM Nonreactive (Nonreactive); ~Hepatitis B Surface Antibody NONREACTIVE (Nonreactive); ~Hepatitis C Antibody Nonreactive (Nonreactive)
[2025-08-23 12:17] LABS: CT PCR Urine NOT DETECTED (Not Detect.); NG PCR Urine NOT DETECTED (Not Detect.)
== END 2025-08-23 08:47 | disposition home or self-care (01) ==
LOC: HO.HMGCLDS 08:46
PROVIDERS: PCP Nurse Practitioner Family; Visit Provider Physician Assistant
DX: Z20.2 Contact with and (suspected) exposure to infections with a predominantly sexual mode of transmission (principal); Z11.4 Encounter for screening for human immunodeficiency virus [HIV]
CPT/HCPCS: 36415; 86704; 86706; 86709; 86803; 87340; 87389; 87491; 87591

== ENCOUNTER 2025-08-23 08:46 | Outpatient (AMB) | payer OTHER, SELFPAY ==
[2025-08-23 08:50] VITALS: BP 130/70; PULSE 102; O2SAT 98; BMI 22.3
--- NOTE | 2025-08-23 08:50 | AM.OFFWIN_ITS ---
Intake Vital Signs 08/23/25 08:50 Height 6 ft 2 in Weight 78.925 kg BMI 22.3 BP 130/70 Blood Pressure Location Lt brachial Position Sitting Pulse 102 H Pulse Source Pulse Oximeter Pulse Oximetry (%) 98 Oxygen Delivery Method Room Air Intake Visit Reasons: EP std testing Intake Note: Patient presents for STD check. Unsure of exposure but wants to check for everything. Patient Tobacco Use Status: Never used Tobacco Allergies almond Allergy (Unknown, Verified 08/23/25 08:55) Unknown avocado Allergy (Unknown, Verified 08/23/25 08:55) Unknown banana Allergy (Unknown, Verified 08/23/25 08:55) Unknown birch Allergy (Unknown, Verified 08/23/25 08:55) Unknown blueberry Allergy (Unknown, Verified 08/23/25 08:55) Unknown Winifred nut Allergy (Unknown, Verified 08/23/25 08:55) Unknown carrot Allergy (Unknown, Verified 08/23/25 08:55) Unknown cashew nut Allergy (Unknown, Verified 08/23/25 08:55) Unknown coconut Allergy (Unknown, Verified 08/23/25 08:55) Unknown grape Allergy (Unknown, Verified 08/23/25 08:55) Unknown hazelnut Allergy (Unknown, Verified 08/23/25 08:55) Unknown lettuce Allergy (Unknown, Verified 08/23/25 08:55) Unknown macadamia nut Allergy (Unknown, Verified 08/23/25 08:55) Unknown mustard Allergy (Unknown, Verified 08/23/25 08:55) Unknown oats Allergy (Unknown, Verified 08/23/25 08:55) Unknown orange Allergy (Unknown, Verified 08/23/25 08:55) Unknown peach Allergy (Unknown, Verified 08/23/25 08:55) Unknown peanut Allergy (Unknown, Verified 08/23/25 08:55) Unknown pear Allergy (Unknown, Verified 08/23/25 08:55) Unknown sesame seed Allergy (Unknown, Verified 08/23/25 08:55) Unknown soybean Allergy (Unknown, Verified 08/23/25 08:55) Unknown tomato Allergy (Unknown, Verified 08/23/25 08:55) Unknown walnut Allergy (Unknown, Verified 08/23/25 08:55) Unknown wheat Allergy (Unknown, Verified 08/23/25 08:55) Unknown willow Allergy (Unknown, Verified 08/23/25 08:55) Unknown amoxicillin (Augmentin) Adverse Reaction (Unknown, Verified 08/23/25 08:55) vomiting clavulanic acid (Augmentin) Adverse Reaction (Unknown, Verified 08/23/25 08:55) vomiting beech Allergy (Mild, Uncoded 08/23/25 08:55) Unknown hickory/pecan tree Allergy (Unknown, Uncoded 08/23/25 08:55) Unknown mindy grass Allergy (Unknown, Uncoded 08/23/25 08:55) Unknown maize/corn Allergy (Unknown, Uncoded 08/23/25 08:55) Unknown ann fruit Allergy (Unknown, Uncoded 08/23/25 08:55) Unknown maple Allergy (Unknown, Uncoded 08/23/25 08:55) Unknown meadow fescue Allergy (Unknown, Uncoded 08/23/25 08:55) Unknown orchard grass Allergy (Unknown, Uncoded 08/23/25 08:55) Unknown walnut tree Allergy (Unknown, Uncoded 08/23/25 08:55) Unknown white karri Allergy (Unknown, Uncoded 08/23/25 08:55) Unknown Do you need a note to return to daycare/school/sports/work: No HPI HPI Comments History of Present Illness Details Chief Complaint: ?I want to get tested for STDs, mainly HIV.? History of Present Illness: The patient presents requesting comprehensive STD testing, with primary concern about HIV. He reports a single episode of unprotected sexual intercourse appro ximately two months ago. He performed an at-home oral swab HIV test but is worried the two-month interval may be insufficient for accurate results, results were negative. He denies any known exposure, injection drug use, or needle sharing. He describes having been ill with flu-like symptoms about two weeks ago and notes that he is again experiencing similar symptoms. He rarely becomes ill and finds two consecutive illnesses unusual. He notes that people around him are not getting sick, which she finds odd. Current symptoms include raw throat and cough; he denies rash and is unsure about lymphadenopathy. He is uncertain whether these symptoms are related to a possible STD or represent coincidental viral illnesses. He has not had recent testing for gonorrhea or other STDs other than a single urine test of unknown scope. He was unable to receive a full STD panel at a prior visit due to sample limitations. He requests repeat testing today for HIV, hepatitis C, and a full STD panel. The patient also requests a refill of his inhaler prescription. He has a primary care provider, Dr.?John Fox, and consents to have results forwarded to him. The patient requests evaluation for possible sexually transmitted infections following unprotected intercourse two months ago and seeks refill of his inhaler. Problem #1: STD Screening / HIV Exposure Concern Assessment: Patient is asymptomatic for classic HIV seroconversion rash but reports recent flu-like illnesses causing anxiety about possible HIV or other STDs after unprotected sex two months prior. No known exposure, no injection drug use. Plan: * Order laboratory testing: HIV Ag/Ab combination assay, Hepatitis C antibody, comprehensive STD panel including gonorrhea and chlamydia. * Instruct patient to present to the laboratory next door for specimen collection. * Results will be forwarded to her PCP (Dr.?John Fox); the clinic will call the patient with any positive results. Problem #2: Medication Refill ? Inhaler Assessment: Patient reports existing inhaler prescription and requests refill. Plan: * Refill inhaler prescription today. [facility] Medical History Hypercholesteremia ADHD Family History Father HTN (hypertension) Mother High cholesterol Sister IBS (irritable bowel syndrome) Social History Housing: Condominium Alcohol intake: never Patient Tobacco Use Status: Never used Tobacco e-Cigarette/Vaping Use: Never Used Second Hand Smoke Exposure: No service: No Current occupational status: employed Current occupation: [employer] Current occupational exposures/hazards: No Cognitive needs: No Hearing needs: No Vision needs: No Review of Systems Narrative Review of Systems: ? Constitutional: Reports two recent episodes of flu-like illness. ? ENT: Throat ?raw.? Uncertain about lymph node swelling. ? Respiratory: Cough present. ? Dermatologic: Denies rash. ? Hematologic/Lymphatic: Unsure about lymphadenopathy. All other systems not discussed. Const All systems reviewed & are unremarkable except as noted in HPI and below Physical Exam Exam Exam: Appearance: Alert.? Oriented X3.? No acute cardiopulmonary distress distress.? Head: Normocephalic, atraumatic, no step-offs or deformities Neck: Normal inspection.? Neck supple.? CVS: Pulses normal.? Respiratory: No respiratory distress.? Abdomen: Soft and nontender.? Skin: ? Normal skin color. Extremities: 5/5 strength to bilateral upper and lower extremities Neuro: Oriented X 3.? No motor deficit.? No sensory deficit. Vital Signs: Last Vital Signs Pulse 102 H 08/23/25 08:50 BP 130/70 08/23/25 08:50 Pulse Ox 98 08/23/25 08:50 Oxygen Delivery Method Room Air 08/23/25 08:50 BMI result Body Mass Index 22.3 vss Assessment & Plan Assessment & Plan (1) Screening for STD (sexually transmitted disease): Code(s): Z11.3 - Encounter for screening for infections with a predominantly sexual mode of transmission Plan Take your medications as prescribed. If you were prescribed antibiotics today, it is important that you take your medication to their entirety, do not skip any doses, do not finish them early. Follow-up with your primary care provider this week. Go to the emergency department with new or worsening symptoms. In case of emergency call 911 Orders: Orders Hepatitis A,B,C Profile Today Z11.3 - Encounter for screening for infections with a predominantly sexual mode of transmission HIV Ab/Ag Today Z11.3 - Encounter for screening for infections with a predominantly sexual mode of transmission Medications: New albuterol sulfate 90 mcg/actuation 2 puffs inhalation Q6H PRN 6.7 grams 0RF shortness of breath or wheezing Coding Level of Care Code Est Pt Level 3 (13588) Diagnoses Screening for STD (sexually transmitted disease) Z11.3
== END 2025-08-23 09:59 | disposition home or self-care (01) ==
PROVIDERS: PCP Nurse Practitioner Family; Visit Provider Physician Assistant
DX: Z11.3 Encounter for screening for infections with a predominantly sexual mode of transmission (principal)